=== PATIENT | female | born 1970 | race Two or more races ===

== ENCOUNTER 2024-04-05 11:13 | Emergency (ER) | payer OTHER ==
[~2024-04-05] VITALS: Ht 157.5 cm; Wt 92.5 kg
[2024-04-05] MEDS ORDERED: TENORMIN100 M1 (11:39)
[2024-04-05] MEDS ORDERED: AVAPRO150 MG (11:39)
[2024-04-05] MEDS ORDERED: GLUMETZA500 MG (11:39)
[2024-04-05] MEDS ORDERED: STELARA90 MG/1 ML (11:40)
[2024-04-05] MEDS ORDERED: [UNRECOGNIZED DRUG - OTHER] (11:40)
[2024-04-05] MEDS ORDERED: ORPHENADRINE CITRATE 30 MG/ML AMPUL IM STA (12:45)
[2024-04-05] MEDS ORDERED: ORPHENADRINE CITRATE 30 MG/ML AMPUL ONE (14:07)
[2024-04-05] MEDS ORDERED: KETOROLAC TROMETHAMINE 30 MG VIAL IV ONE (19:45)
[2024-04-05] MEDS ORDERED: SUMATRIPTAN SUCCINATE 6 MG/0.5 ML VIAL SUBCUTANEO ONE ×2 (19:45→19:51)
[2024-04-05] MEDS ORDERED: 0.9 % SODIUM CHLORIDE 500 ML IV ONE (19:45)
[2024-04-05] MEDS ORDERED: METOCLOPRAMIDE HCL 10 MG in DEXTROSE 5 % IN WATER 50 ML IV ONE (19:45)
[2024-04-05] MEDS ORDERED: METOCLOPRAMIDE HCL 5 MG/ML VIAL ONE (19:51)
[2024-04-05] MEDS ORDERED: KETOROLAC TROMETHAMINE 30 MG VIAL ONE (19:51)
[2024-04-05] MEDS ORDERED: METOCLOPRAMIDE10 MG PO (21:18)
[2024-04-05] MEDS ORDERED: NAPROXEN500 MG PO (21:18)
== END 2024-04-05 21:29 | disposition home or self-care (01) ==
LOC: ER 11:16
DX: R51.9 Headache, unspecified (principal); D86.89 Sarcoidosis of other sites; Z91.041 Radiographic dye allergy status; Z88.8 Allergy status to other drugs, medicaments and biological substances; J45.909 Unspecified asthma, uncomplicated; E11.9 Type 2 diabetes mellitus without complications; Z79.84 Long term (current) use of oral hypoglycemic drugs
CPT/HCPCS: 70450; 72040; 96365; 96366; 96372; 99284; J1885; J2360; J2765; J3490; J7042